=== PATIENT | male | born 1975 | race Caucasian/White ===

== ENCOUNTER 2016-06-30 08:14 | Emergency (ER) | payer OTHER ==
[~2016-06-30] VITALS: Ht 182.9 cm; Wt 102.3 kg
[2016-06-30 09:23] LABS: EOSINOPHIL (%) 0.8 % (0-5); EOSINOPHIL COUNT 0.1 K/uL (0-0.3); HEMATOCRIT 46.4 % (38.0-50.0); IMMATURE GRANULOCYTE (%) 0.3 % (0.0-0.7); INSTRUMENT ABS NEUTROPHIL CT 4.6 K/uL; MCH 28.9 PG (29.0-34.0); MCV 87.5 FL (86-99); MEAN PLAT.VOLUME 9.5 uM^3 (9.0-12.4); MONOCYTE (%) 5.9 % (3-12); MONOCYTE COUNT 0.4 K/uL (0-0.8); NEUTROPHIL (%) 75.6 % (45-76); NEUTROPHIL COUNT 4.6 K/uL (1.8-6.4); PLATELET COUNT 218 K/uL (156-360); RBC DIS.WIDTH-CV 12.6 % (11.8-14.6); RBC DIS.WIDTH-SD 40.4 % (39-53); WHITE BLOOD COUNT 6.1 K/uL (4.1-10.2)
[2016-06-30] MEDS ORDERED: LOSARTAN POTAS100 MG PO (09:24)
[2016-06-30 09:34] LABS: CHLORIDE 105 mEq/L (99-109); POTASSIUM 4.6 mEq/L (3.7-5.4); SODIUM 140 mEq/L (136-147)
[2016-06-30 09:36] LABS: GLUCOSE 105 mg/dL (70-99)
[2016-06-30 09:37] LABS: ANION GAP 9 MEQ/L (2-14)
[2016-06-30 09:40] LABS: GFR ESTIMATE (CALCULATED) > 59 mL/min/; UREA NITROGEN (BUN) 16 mg/dL (9-23)
[2016-06-30 11:13] LABS: ADD MIUA? YES; BILIRUBIN NEGATIVE; BLOOD LARGE; COLOR AMBER ((YELLOW)); GLUCOSE (STRIP) NEGATIVE; KETONES NEGATIVE; LEUKOCYTES NEGATIVE; NITRITE NEGATIVE; PROTEIN (STRIP) 100; SPECIFIC GRAVITY 1.031 (1.000-1.030); UROBILINOGEN 0.2 MG/DL (0.2-1.0)
[2016-06-30 11:29] LABS: BACTERIA 3+ /HPF; BUDDING YEAST 3+; EPITHELIAL CELLS NONE SEEN /HPF; MUCUS 4+ /LPF; RED BLOOD CELLS TNTC /HPF (0-5)
[2016-06-30] MEDS ORDERED: PERCOCET 5/31 TABLET PO (12:24)
[2016-06-30] MEDS ORDERED: CIPRO500 MG PO (12:24)
[2016-06-30] MEDS ORDERED: FLOMAX0.4 MG PO (12:39)
[2016-06-30 12:57] VITALS: BP 138/92
== END 2016-06-30 12:58 | disposition home or self-care (01) ==
LOC: EME 08:14
PROVIDERS: Emergency Medicine
DX: N20.1 Calculus of ureter (principal); I10 Essential (primary) hypertension; K50.90 Crohn's disease, unspecified, without complications
CPT/HCPCS: 74176; 80048; 81003; 85025; 87086; 99281; 99284; J1885; J2405; J7030